=== PATIENT | male | born 1970 | race American Indian/Alaskan Native ===

== ENCOUNTER 2018-09-14 16:55 | Emergency (ER) | payer OTHER ==
[2018-09-14 17:01] VITALS: BP 167/110
--- NOTE | 2018-09-14 17:01 | Emergency Department Report ---
Chief Complaint: Dental/Oral Stated Complaint: TOOTHACHE Time Seen by Provider: 09/14/18 16:59 - HPI History of Present Illness: This is a 47 y.o. male that presents with dental pain on right upper for 1 week. Patient states today pain is uncontrollable with ibuprofen. - ROS Review of Systems: dental pain - Exam Vital Signs: Vital Signs 09/14/18 17:00 Temperature 97.5 F L Pulse Rate 81 Respiratory 20 Rate Blood Pressure 167/110 O2 Sat by Pulse 98 Oximetry Physical Exam: GENERAL: The patient is well looking, in no acute distress. HEENT: Atraumatic and normocephalic. Pupils are equal, round, reactive to light, and accommodation. Extraocular movements are intact. There is no icterus, cyanosis, or pallor of the conjunctivae. Tympanic membranes normal bilaterally. Nasal turbinates are clear without exudates. Sinuses nontender to percussion. Posterior pharynx is normal. Uvula midline, no exudates are noted. Dental caries #4, tenderness, and mucosal swelling. CHEST: Air entry is adequate bilaterally with no rhonchi, and crackles. HEART: Sounds 1 and 2 are heard and are normal. Regular rate and rhythm, no tachycardic, murmurs, gallops, or rubs. ABDOMEN: Soft and nontender. Bowel sounds are present and normal. There is no hepatosplenomegaly. SKIN: Without rash. EXTREMITIES: Without edema, cyanosis, or clubbing. MSE screening note: Focused history and physical exam performed. Due to findings the following was ordered: ED Medical Decision Making - Medical Decision Making Patient was seen by this provider. Attempt to give pain medication. Patient didn't respond 3 times. Patient left prior to being seen. ED Disposition for [facility] Time of Disposition: 19:30
== END 2018-09-15 11:17 | disposition left against medical advice (07) ==
LOC: ED 16:55
DX: K08.89 Other specified disorders of teeth and supporting structures (principal); Z88.0 Allergy status to penicillin
CPT/HCPCS: 99281

== ENCOUNTER 2022-03-03 10:48 | Emergency (ER) | payer SELFPAY ==
[2022-03-03 12:14] VITALS: BP 137/93
--- NOTE | 2022-03-03 12:19 | Event Note ---
ED Screening Note ED Screening Note: co testicular and penile pain sp rough intercourse denies viagra/PDA's This initial assessment/diagnostic orders/clinical plan/treatment(s) is/are subject to change based on patients health status, clinical progression and re- assessment by fellow clinical providers in the ED. Further treatment and workup at subsequent clinical providers discretion. Patient/guardian urged not to elope from the ED as their condition may be serious if not clinically assessed and managed. Initial orders include: ro fx ro torsion
[2022-03-03 12:43] LABS: Bilirubin,Urine NEG (Negative); Blood,Urine SM (Negative); Color,Urine Straw (Yellow); Mucus,Urine FEW /HPF; Protein,Urine <15 mg/dL mg/dL (Negative); Urobilinogen,Urine < 2 mg/dL (<2.0); WBC,Urine < 1.0 /HPF (0.0-6.0)
--- NOTE | 2022-03-03 15:33 | Emergency Department Report ---
HPI - General Chief Complaint: Urogenital-Male Time Seen by Provider: 03/03/22 15:15 - HPI HPI: Room 7 Patient is a 51-year-old male present with chief complaint of penile pain. The patient states he was having sexual intercourse last night and bent his penis. Patient states he had pain and blood immediately came from his meatus. He states this began to clear as he urinated. Patient states he attempted to have an erection again there was so much pain that he was not successful. ED Past Medical Hx - Past Medical History Previous Medical History?: No - Family History Family history: no significant - Social History Smoking Status: Never Smoker Substance Use Type: Alcohol - Medications Home Medications: Home Medications Medication Instructions Recorded Confirmed Last Taken Type HYDROcodone/APAP 5-325 [[place] 1 - 2 each PO Q6HR PRN #14 tablet 03/03/22 Unknown Rx 5/325] Ibuprofen [Motrin 800 MG tab] 800 mg PO Q8HR PRN #20 tablet 03/03/22 Unknown Rx ED Review of Systems ROS: Stated complaint: POSS PENIS INJURY ,BLOOD IN URINE Other details as noted in HPI Constitutional: no symptoms reported Eyes: denies: eye pain ENT: denies: throat pain Respiratory: no symptoms reported Cardiovascular: denies: chest pain Endocrine: no symptoms reported Gastrointestinal: denies: abdominal pain Genitourinary: hematuria, other (Penile pain). denies: testicular pain Musculoskeletal: denies: back pain Neurological: denies: headache Physical Exam - Physical Exam Vital Signs: Vital Signs 03/03/22 12:10 Temperature 98.6 F Pulse Rate 77 Respiratory 18 Rate Blood Pressure 137/93 O2 Sat by Pulse 99 Oximetry Physical Exam: GENERAL: The patient is well-developed well-nourished male lying on stretcher not appearing to be in acute distress. [] HEENT: Normocephalic. Atraumatic. Extraocular motions are intact. Patient has moist mucous membranes. NECK: Supple. Trachea midline CHEST/LUNGS: Clear to auscultation. There is no respiratory distress noted. HEART/CARDIOVASCULAR: Regular. There is no tachycardia. There is no gallop rub or murmur. ABDOMEN: Abdomen is soft, nontender. Patient has normal bowel sounds. There is no abdominal distention. SKIN: There is no rash. There is no edema. There is no diaphoresis. NEURO: The patient is awake, alert, and oriented. The patient is cooperative. The patient has no focal neurologic deficits. The patient has normal speech and gait. MUSCULOSKELETAL: There is no evidence of acute injury. GENITOURINARY: There is no ecchymosis appreciated on the penis. No hematoma or edema appreciated ED Course Vital Signs 03/03/22 12:10 Temperature 98.6 F Pulse Rate 77 Respiratory 18 Rate Blood Pressure 137/93 O2 Sat by Pulse 99 Oximetry - Consultations Consultation #1: 03/03/22 15:43 [place] [facility]/transfer line called 03/03/22 16:24 Case discussed with [place] urologist Dr. Ba-states the patient is voiding well may be followed up as an outpatient within the next 1-2 weeks. No antibiotics are necessary risk of infection is low. ED Medical Decision Making - Differential Diagnosis Urethral injury Critical care attestation.: If time is entered above; I have spent that time in minutes in the direct care of this critically ill patient, excluding procedure time. ED Disposition Clinical Impression: Penile pain, Penis injury Disposition: HOME / SELF CARE / HOMELESS Is pt being admited?: No Does the pt Need Aspirin: No Condition: Stable Additional Instructions: Return to the emergency department should you develop worsening symptoms, inability to tolerate food or liquids, high fever or any other concerns Prescriptions: Ibuprofen [Motrin 800 MG tab] 800 mg PO Q8HR PRN #20 tablet PRN Reason: Pain, Moderate (4-6) HYDROcodone/APAP 5-325 [[place] 5/325] 1 - 2 each PO Q6HR PRN #14 tablet PRN Reason: Pain Referrals: CHACE HARGROVE MD [Staff Physician] - 3-5 Days (Dr. Hargrove is a urologist. Please follow-up with him for further evaluation) Time of Disposition: 16:27
== END 2022-03-03 17:50 | disposition home or self-care (01) ==
LOC: ED 10:48
DX: S30.93XA Unspecified superficial injury of penis, initial encounter (principal); Z72.89 Other problems related to lifestyle; Z88.0 Allergy status to penicillin; X58.XXXA Exposure to other specified factors, initial encounter; Y93.89 Activity, other specified; Y92.89 Other specified places as the place of occurrence of the external cause; Y99.8 Other external cause status
CPT/HCPCS: 81001; 99283